=== PATIENT | female | born 1995 | race Caucasian/White ===

== ENCOUNTER 2019-11-05 12:17 | Emergency (ER) | payer MEDICAID, OTHER ==
[~2019-11-05] VITALS: Ht 172.7 cm; Wt 106.9 kg
--- NOTE | 2019-11-05 13:11 | NUR ---
Pt to room 21 from lobby
[2019-11-05] MEDS ORDERED: ONDANSETRON 2MG/ML, 2ML ONE (13:50)
[2019-11-05] MEDS ORDERED: MORPHINE SULFATE 4 MG/ML, 1ML ONE (13:50)
[2019-11-05] MEDS ORDERED: SODIUM CHLORIDE FLUSH 10ML SYR IVF ONE (14:00)
[2019-11-05] MEDS ORDERED: SODIUM CHLORIDE 0.9% 1,000ML IVBOLUS ONE (14:00)
[2019-11-05] MEDS ORDERED: ONDANSETRON 2MG/ML, 2ML IVPush ONE (14:00)
[2019-11-05] MEDS ORDERED: MORPHINE SULFATE 4 MG/ML, 1ML IVPush PRN (14:00)
[2019-11-05 14:19] LABS: BASOPHILS # (AUTO) 0.01 x10^3/uL (0-0.1); BASOPHILS % (AUTO) 0 % (0-1); EOSINOPHILS # (AUTO) 0.01 x10^3/uL (0-0.4); EOSINOPHILS % (AUTO) 0 % (1-7); LYMPHOCYTES # (AUTO) 1.25 x10^3/uL (1-3.4); LYMPHOCYTES % (AUTO) 16 % (22-44); MD NO; MEAN CORPUSCULAR HEMOGLOBIN 29.4 pg (27.0-34.8); MEAN CORPUSCULAR HGB CONC 33.6 g/dL (32.4-35.8); MEAN CORPUSCULAR VOLUME 87.4 fL (80-100); MEAN PLATELET VOLUME 7.9 fL (7.4-10.4); MONOCYTES # (AUTO) 0.47 x10^3/uL (0.2-0.8); MONOCYTES % (AUTO) 6 % (2-9); NEUTROPHILS % (AUTO) 78 % (42-75); PLATELET COUNT 229 x10^3/uL (130-400); RED BLOOD COUNT 5.28 x10^6/uL (3.82-5.3); RED CELL DISTRIBUTION WIDTH 13.6 % (9.6-15.2)
[2019-11-05 14:22] LABS: ANION GAP 7 mmol/L (5-15); CALCIUM 8.8 mg/dL (8.5-10.1); CHLORIDE 104 mmol/L (98-107)
[2019-11-05 14:27] LABS: ALANINE AMINOTRANSFERASE 32 U/L (12-78); ALKALINE PHOSPHATASE 50 U/L (45-117); BILIRUBIN,TOTAL 1.2 mg/dL (0.2-1.0); CREATININE 0.86 mg/dL (0.55-1.02); TOTAL PROTEIN 8.5 g/dL (6.4-8.2)
--- NOTE | 2019-11-05 14:48 | NUR ---
PT AMBULATED TO THE BR W/ A STEADY GAIT. URINE COLLECTED AND SENT TO LAB.
[2019-11-05 15:05] LABS: MICROSCOPIC INDICATED
[2019-11-05 15:07] LABS: CULTURE INDICATED? YES
--- NOTE | 2019-11-05 15:15 | NUR ---
PT REPORTS RELIEF OF PAIN AND NAUSEA AFTER MEDS.
--- NOTE | 2019-11-05 16:09 | NUR ---
PT TO CT.
--- NOTE | 2019-11-05 16:23 | NUR ---
ALL TESTS RESULTED. PT IS UP FOR RECHECK AT THIS TIME.
[2019-11-05 16:58] VITALS: BP 122/82
== END 2019-11-05 17:00 | disposition home or self-care (01) ==
LOC: ED 14:21
DX: K52.9 Noninfective gastroenteritis and colitis, unspecified (principal); E86.0 Dehydration
CPT/HCPCS: 36415; 74176; 76700; 80053; 81001; 84703; 85025; 87086; 96361; 96374; 96375; 99285; J2270; J2405; J7030

== ENCOUNTER 2020-12-02 16:09 | Outpatient (CLI) | payer OTHER ==
[~2020-12-02] VITALS: Ht 172.7 cm; Wt 104.5 kg
[2020-12-02 16:21] VITALS: BP 125/77
[2021-01-19] MEDS ORDERED: OXYC1TAB12 PO (09:29)
== END 2020-12-02 17:00 | disposition home or self-care (01) ==
LOC: LDOP 16:09
PROVIDERS: ATTEND Obstetrics & Gynecology
DX: O26.893 Other specified pregnancy related conditions, third trimester (principal); R10.9 Unspecified abdominal pain; Z3A.32 32 weeks gestation of pregnancy
CPT/HCPCS: 59025

== ENCOUNTER 2021-01-03 11:31 | Outpatient (CLI) | payer OTHER ==
[~2021-01-03] VITALS: Ht 172.7 cm; Wt 109.1 kg
[2021-01-03] MEDS ORDERED: ASPI81TA59 PO (11:41)
[2021-01-03] MEDS ORDERED: PREN1TAB60 PO (11:41)
[2021-01-03 12:01] VITALS: BP 120/77
[2021-01-03 12:14] LABS: MICROSCOPIC INDICATED
[2021-01-03 12:16] LABS: TOTAL PROTEIN,URINE RANDOM < 5 mg/dL (0-12)
[2021-01-03 12:19] LABS: BASOPHILS % (AUTO) 0 % (0-1); EOSINOPHILS % (AUTO) 2 % (1-7); LYMPHOCYTES % (AUTO) 18 % (22-44); MD NO; MEAN CORPUSCULAR HEMOGLOBIN 30.8 pg (27.0-34.8); MEAN CORPUSCULAR HGB CONC 34.5 g/dL (32.4-35.8); MEAN PLATELET VOLUME 7.7 fL (7.4-10.4); MONOCYTES % (AUTO) 7 % (2-9); NEUTROPHILS % (AUTO) 73 % (42-75); PLATELET COUNT 216 x10^3/uL (130-400); RED CELL DISTRIBUTION WIDTH 13.3 % (9.6-15.2)
[2021-01-03 12:29] LABS: ALANINE AMINOTRANSFERASE 40 U/L (12-78); ALBUMIN 2.5 g/dL (3.4-5.0); ANION GAP 6 mmol/L (5-15); CALCIUM 8.1 mg/dL (8.5-10.1); CHLORIDE 112 mmol/L (98-107); CREATININE 0.39 mg/dL (0.55-1.02)
[2021-01-03 12:30] LABS: BILIRUBIN, DIRECT < 0.1 mg/dL (0.1-0.2)
[2021-01-03 12:32] LABS: ALKALINE PHOSPHATASE 86 U/L (45-117); BILIRUBIN,TOTAL 0.3 mg/dL (0.2-1.0)
== END 2021-01-03 14:12 | disposition home or self-care (01) ==
LOC: LDOP 11:31
PROVIDERS: ATTEND Obstetrics & Gynecology
DX: O16.3 Unspecified maternal hypertension, third trimester (principal); O36.8130 Decreased fetal movements, third trimester, not applicable or unspecified; Z3A.37 37 weeks gestation of pregnancy
CPT/HCPCS: 36415; 59025; 76819; 80053; 81001; 82248; 82570; 84156; 84550; 85025

== ENCOUNTER 2021-01-16 05:27 | Inpatient (IN) | payer OTHER ==
[~2021-01-16] VITALS: Ht 172.7 cm; Wt 107.2 kg
[~2021-01-16 05:27] MED LIST: ASPI81TA59 PO; PREN1TAB60 PO
[2021-01-16] MEDS ORDERED: METOCLOPRAMIDE 5 MG/ML, 2ML IV ONE (05:30)
[2021-01-16] MEDS ORDERED: LACTATED RINGERS 1,000 ML IVBOLUS ONE (05:30)
[2021-01-16] MEDS ORDERED: LACTATED RINGERS 1,000 ML IV SCH (05:30)
[2021-01-16] MEDS ORDERED: SODIUM CITRATE/CITRIC ACID 30 ML UDC PO ONE (05:30)
[2021-01-16 05:36] VITALS: BP 116/73
[2021-01-16 06:01] LABS: BASOPHILS % (AUTO) 0 % (0-1); EOSINOPHILS % (AUTO) 3 % (1-7); LYMPHOCYTES % (AUTO) 20 % (22-44); MD NO; MEAN CORPUSCULAR HEMOGLOBIN 30.1 pg (27.0-34.8); MEAN CORPUSCULAR HGB CONC 33.6 g/dL (32.4-35.8); MEAN PLATELET VOLUME 7.9 fL (7.4-10.4); MONOCYTES % (AUTO) 7 % (2-9); NEUTROPHILS % (AUTO) 70 % (42-75); PLATELET COUNT 215 x10^3/uL (130-400); RED CELL DISTRIBUTION WIDTH 13.3 % (9.6-15.2)
[2021-01-16] MEDS ORDERED: OXYTOCIN 30U/ 0.9% NaCL 500ML 500 ML ONE (06:07)
[2021-01-16] MEDS ORDERED: SODIUM CITRATE/CITRIC ACID 15 ML UDC ONE (06:07)
[2021-01-16] MEDS ORDERED: NEWBORN KIT ONE (06:07)
[2021-01-16] MEDS ORDERED: OXYTOCIN 10 UNITS/ML, 1ML ONE (07:16)
[2021-01-16] MEDS ORDERED: PHENYLEPHRINE 10 MG/ML ONE (07:16)
[2021-01-16] MEDS ORDERED: DEXAMETHASONE 4 MG/ML, 1ML ONE (07:16)
[2021-01-16] MEDS ORDERED: ONDANSETRON 2MG/ML, 2ML ONE (07:16)
[2021-01-16] MEDS ORDERED: CEFAZOLIN 1,000 MG ONE (07:16)
[2021-01-16] MEDS ORDERED: KETOROLAC 30 MG/1 ML ONE (07:16)
[2021-01-16] MEDS ORDERED: FENTANYL PF 100 MCG/2ML ONE (07:16)
[2021-01-16] MEDS ORDERED: EPHEDRINE 50 MG/ML, 1ML ONE (07:16)
[2021-01-16] MEDS ORDERED: HYDROmorphone 2 MG/ML, 1ML ONE (07:17)
[2021-01-16] MEDS ORDERED: METOPROLOL 1 MG/ML, 5ML IV PRN (07:30)
[2021-01-16] MEDS ORDERED: FENTANYL PF 100 MCG/2ML IV PRN (07:30)
[2021-01-16] MEDS ORDERED: ONDANSETRON 2MG/ML, 2ML IVPush PRN (07:30)
[2021-01-16] MEDS ORDERED: MEPERIDINE/PF 25MG/0.5ML IVPush PRN (07:30)
[2021-01-16] MEDS ORDERED: hydrALAzine 20 MG/ML, 1ML IV PRN (07:30)
[2021-01-16] MEDS ORDERED: EPHEDRINE 50 MG/ML, 1ML IVPush PRN (07:30)
[2021-01-16] MEDS ORDERED: PROMETHAZINE 25 MG/ML, 1ML IV PRN (07:30)
[2021-01-16] MEDS ORDERED: OXYcodone 5 MG/5 ML ORAL.SOL UDC PO PRN (07:30)
[2021-01-16] MEDS ORDERED: HYDROmorphone 2 MG/ML, 1ML IVPush PRN (07:30)
[2021-01-16] MEDS ORDERED: ALBUTEROL SULFATE 2.5 MG/3 ML NPPB PRN (07:30)
[2021-01-16] MEDS ORDERED: MIDAZOLAM 1 MG/ML, 2ML IV PRN (07:30)
[2021-01-16] MEDS ORDERED: LABETALOL 5MG/ML, 20ML IV PRN (07:30)
[2021-01-16] MEDS ORDERED: HYDROcodone/APAP 7.5-325MG/15ML UDC PO PRN (07:30)
[2021-01-16] MEDS ORDERED: CARBOPROST TROMETHAMINE 250 MCG/ML, 1ML IM PRN (09:00)
[2021-01-16] MEDS ORDERED: ONDANSETRON 2MG/ML, 2ML IV PRN (09:00)
[2021-01-16] MEDS ORDERED: CALCIUM CARBONATE 500 MG TAB.CHEW PO PRN (09:00)
[2021-01-16] MEDS: PRENATAL VIT/IRON/FA 1 EACH TABLET PO SCH (09:00)
[2021-01-16] MEDS ORDERED: METHYLERGONOVINE 0.2 MG/ML IM PRN (09:00)
[2021-01-16] MEDS ORDERED: morphine SULFATE 10 MG/ML, 1ML IVPush PRN (09:00)
[2021-01-16] MEDS ORDERED: BISACODYL 10 MG SUPP PR PRN (09:00)
[2021-01-16] MEDS ORDERED: MORPHINE SULFATE 4 MG/ML, 1ML IVPush PRN (09:00)
[2021-01-16] MEDS ORDERED: ACETAMINOPHEN 325 MG TABLET PO PRN ×2 (09:00)
[2021-01-16] MEDS ORDERED: MISOPROSTOL 200 MCG TABLET PR PRN (09:00)
[2021-01-16] MEDS: LACTATED RINGERS 1,000 ML IV SCH ×4 (09:00→19:00)
[2021-01-16] MEDS: OXYTOCIN 30U/ 0.9% NaCL 500ML 500 ML IV SCH ×2 (09:33→19:00)
[2021-01-16 11:00] VITALS: BP 114/74
[2021-01-16] MEDS: SIMETHICONE 80 MG CHEW TAB PO PRN (11:30)
[2021-01-16] MEDS: IBUPROFEN 600 MG TABLET PO PRN ×3 (11:30→23:55)
[2021-01-16] MEDS: OXYcodone/APAP 5/325MG TABLET PO PRN ×3 (13:28→21:42)
[2021-01-16 15:29] LABS: BASOPHILS % (AUTO) 0 % (0-1); EOSINOPHILS % (AUTO) 0 % (1-7); LYMPHOCYTES % (AUTO) 9 % (22-44); MEAN CORPUSCULAR HEMOGLOBIN 30.6 pg (27.0-34.8); MEAN CORPUSCULAR HGB CONC 34.1 g/dL (32.4-35.8); MEAN PLATELET VOLUME 8.1 fL (7.4-10.4); MONOCYTES % (AUTO) 6 % (2-9); NEUTROPHILS % (AUTO) 86 % (42-75); PLATELET COUNT 200 x10^3/uL (130-400); RED BLOOD COUNT 3.61 x10^6/uL (3.82-5.3); RED CELL DISTRIBUTION WIDTH 12.9 % (9.6-15.2)
[2021-01-16 15:32] LABS: MD NO
[2021-01-16 15:45] VITALS: BP 136/80
[2021-01-16 20:00] VITALS: BP 126/78
[2021-01-16 23:58] VITALS: BP 133/87
[2021-01-17] MEDS: LACTATED RINGERS 1,000 ML IV SCH ×2 (01:00→05:00)
[2021-01-17] MEDS: OXYcodone/APAP 5/325MG TABLET PO PRN ×5 (01:48→22:09)
[2021-01-17 04:15] VITALS: BP 119/72
[2021-01-17] MEDS: OXYTOCIN 30U/ 0.9% NaCL 500ML 500 ML IV SCH (05:00)
[2021-01-17] MEDS: IBUPROFEN 600 MG TABLET PO PRN ×3 (06:04→19:36)
[2021-01-17 07:10] VITALS: BP 112/74
[2021-01-17] MEDS: PRENATAL VIT/IRON/FA 1 EACH TABLET PO SCH (10:21)
[2021-01-17] MEDS: DOCUSATE 100 MG CAPSULE PO PRN ×2 (10:21→19:36)
[2021-01-17] MEDS: SIMETHICONE 80 MG CHEW TAB PO PRN ×2 (13:36→17:54)
[2021-01-17 19:00] VITALS: BP 119/77
[2021-01-18] MEDS: OXYcodone/APAP 5/325MG TABLET PO PRN ×4 (03:33→19:45)
[2021-01-18] MEDS: IBUPROFEN 600 MG TABLET PO PRN ×3 (05:13→19:45)
[2021-01-18] MEDS: DOCUSATE 100 MG CAPSULE PO PRN ×2 (09:12→19:45)
[2021-01-18] MEDS: PRENATAL VIT/IRON/FA 1 EACH TABLET PO SCH (09:12)
[2021-01-18] MEDS: SIMETHICONE 80 MG CHEW TAB PO PRN (09:12)
[2021-01-18 19:25] VITALS: BP 139/88
[2021-01-19] MEDS: IBUPROFEN 600 MG TABLET PO PRN ×2 (01:38→07:44)
[2021-01-19] MEDS: OXYcodone/APAP 5/325MG TABLET PO PRN ×3 (06:54→12:23)
[2021-01-19] MEDS: DOCUSATE 100 MG CAPSULE PO PRN (07:44)
[2021-01-19] MEDS: PRENATAL VIT/IRON/FA 1 EACH TABLET PO SCH (07:44)
[2021-01-19 07:53] VITALS: BP 131/82
[2021-01-19] MEDS ORDERED: IBUP-1222 PO (09:29)
[2021-01-19] MEDS ORDERED: OXYC1TAB14 PO (09:29)
== END 2021-01-19 12:53 | disposition home or self-care (01) | DRG 788 ==
LOC: LDIP 05:27 → 2NW 11:00
PROVIDERS: ADMIT Obstetrics & Gynecology; ATTEND Obstetrics & Gynecology
PROC: 10D00Z1 Extraction of Products of Conception, Low, Open Approach (ICD-10-PCS; principal; 2021-01-16)
DX: O34.211 Maternal care for low transverse scar from previous cesarean delivery (principal); Z37.0 Single live birth; Z3A.39 39 weeks gestation of pregnancy; Z80.0 Family history of malignant neoplasm of digestive organs; Z20.822 Contact with and (suspected) exposure to COVID-19
CPT/HCPCS: 36415; 85025; 86592; 86850; 86900; G0378; J0690; J1100; J1170; J1885; J2405; J3010; U0005; J2270; J2370; J2590; J2765; J7120; U0003